=== PATIENT | female | born 1985 ===

== ENCOUNTER 2017-01-07 12:58 | Emergency (ER) | payer OTHER ==
[2017-01-07 13:04] VITALS: RESP 20; TEMP 98.8; O2SAT 100
[2017-01-07 13:06] VITALS: BMI 20.5
--- NOTE | 2017-01-07 13:50 | ED PDOC ---
HPI: Hypertension/Hypotension History Per: Patient History/Exam Limitations: no limitations Additional Complaint(s): 31 y/o F complaining of headache, SOB, sore throat and body aches that began 3 days ago and has progressively aggravated. Pt visited today urgent care clinic where BP was 185/100, pt was sent to ER. Pt reports taking Sudafed and Nyquil yesterday and not eating today. Pt came back from a [place] trip 5 days ago. No previous similar episodes. Pt denies fever, sore throat, CP, palpitations, abdominal pain, urinary complaints. Medications: none PMHx: denied PSHx: apendectomy during shildhood. FHx: Strong HTN history in everybody in her family. SHx: No tobacco or alcohol. Reports smoking marihuana intermittently. Sexually active. 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 <Vladimir Cruz - Last Filed: 01/07/17 14:19> <Aishwarya Valenzuela - Last Filed: 01/07/17 14:57> Time Seen by Provider: 01/07/17 13:15 Chief Complaint (Nursing): High Blood Pressure Supervising Attending Note - Supervising Attending Note The Documented history was done by the: Physician Management Accounts Manager The documented physical exam was done by the: Physician Management Accounts Manager - Attestation: I have personally seen and examined this patient.: Yes I have fully participated in the care of the patient.: Yes I have reviewed all pertinent clinical information, including history, physical exam and plan: Yes <Aishwarya aVlenzuela - Last Filed: 01/07/17 14:57> Past Medical History Vital Signs: Last Vital Signs Temp 98.8 F 01/07/17 13:01 Pulse 125 H 01/07/17 13:01 Resp 20 01/07/17 13:01 BP 205/155 H 01/07/17 13:01 Pulse Ox 100 01/07/17 13:01 - Medical History PMH: No Chronic Diseases <Vladimir Cruz - Last Filed: 01/07/17 14:19> Vital Signs: Last Vital Signs Temp 98.8 F 01/07/17 13:01 Pulse 125 H 01/07/17 13:01 Resp 20 01/07/17 13:01 BP 175/102 H 01/07/17 14:14 Pulse Ox 100 01/07/17 14:21 - Family History Family History: States: Hypertension <Aishwarya Valenzuela - Last Filed: 01/07/17 14:57> - Home Medications Home Medications: Ambulatory Orders Medication Instructions Recorded Ciprofloxacin HCl [Cipro] 500 mg PO BID #14 tab 10/04/14 Oxycodone HCl/Acetaminophen 1 tab PO Q6 #15 tab 10/04/14 [Percocet 325 mg-5 mg] Tamsulosin [Flomax] 0.4 mg PO DAILY #14 cap 10/04/14 - Allergies Allergies/Adverse Reactions: Allergies Allergy/AdvReac Type Severity Reaction Status Date / Time No Known Allergies Allergy Verified 10/04/14 18:07 Physical Exam - Reviewed Vital Signs Reviewed: Yes - Physical Exam Appears: Positive for: Well, Uncomfortable Head Exam: Positive for: ATRAUMATIC, NORMAL INSPECTION Skin: Positive for: Normal Color Eye Exam: Positive for: Normal appearance ENT: Positive for: Pharynx Is (erythematous, tonsils are enlarge. ) Neck: Positive for: Normal, Supple Cardiovascular/Chest: Positive for: Regular Rate, Rhythm Respiratory: Positive for: Normal Breath Sounds Gastrointestinal/Abdominal: Positive for: Normal Exam, Bowel Sounds, Soft. Negative for: Tenderness <Vladimir Cruz - Last Filed: 01/07/17 14:19> - ECG O2 Sat by Pulse Oximetry: 100 <Vladimir Cruz - Last Filed: 01/07/17 14:19> - Laboratory Results Result Diagrams: 01/07/17 14:00 <Aishwarya Valenzuela - Last Filed: 01/07/17 14:57> Medical Decision Making Medical Decision Makin31 y/o F presenting with elevated BP. Plan: --CBC --CMP --EKG --Chest X ray --Acetaminophen PO 975mg. <Vladimir Cruz - Last Filed: 01/07/17 14:19> Medical Decision Makin.30 p - patient is feeling much better after Tylenol 975mg. Her blood pressure has come down significantly. After in depth discussion on the pros and cons of treated her blood pressure with a blood pressure lowering agent, patient opted to hold off. She agrees to either see Dr. Cruz in the [facility] within 1-2 weeks or finding a PCP on her own. Cautioned her on the need of followup closely given her family history of hypertension in both parents. <Aishwarya Valenzuela - Last Filed: 01/07/17 14:57> Disposition <Vladimir Cruz - Last Filed: 01/07/17 14:19> - Patient ED Disposition Is Patient to be Admitted: No Doctor Will See Patient In The: Office Counseled Patient/Family Regarding: Diagnosis, Need For Followup - Disposition Disposition: Routine/Home Disposition Time: 14:56 - POA Present On Arrival: None <Aishwarya Valenzuela - Last Filed: 01/07/17 14:57> - Clinical Impression Clinical Impression: Hypertension - Disposition Condition: IMPROVED Instructions: Hypertension (ED), Acute Headache (ED) Forms: [facility] ([place])
[2017-01-07 14:38] LABS: HEMOGLOBIN 12.4 g/dL (12.0-16.0); MEAN CORPUSCULAR HEMOGLOBIN 29.9 pg (27.0-31.0); RBC 4.15 Mil/uL (3.80-5.20); RED CELL DISTRIBUTION WIDTH 15.3 % (11.5-14.5)
[2017-01-07 14:40] LABS: MEAN CELL VOLUME 90.5 fl (81.0-99.0)
[2017-01-07 14:49] LABS: ALB/GLOB RATIO 1.2 (1.0-2.1); ALBUMIN 4.2 g/dL (3.5-5.0); ALT/SGPT 26 U/L (9-52); AST/SGOT 17 U/L (14-36); BLOOD UREA NITROGEN 7 mg/dl (7-17); CALCIUM 9.2 mg/dL (8.4-10.2); GFR AFRICAN-AMERICAN > 60; GFR NON-AFRICAN AMERICAN > 60
--- NOTE | 2017-01-07 15:09 | RAD ---
HISTORY: shortness of breath COMPARISON: 06/05/2010 TECHNIQUE: Chest PA and lateral FINDINGS: LUNGS: No active pulmonary disease. PLEURA: No significant pleural effusion identified. No pneumothorax apparent. CARDIOVASCULAR: Normal. OSSEOUS STRUCTURES: No significant abnormalities. VISUALIZED UPPER ABDOMEN: Normal. OTHER FINDINGS: None. IMPRESSION: No active disease. No significant interval change compared to the prior examination(s).
[2017-01-07 15:12] VITALS: BP 160/95; PULSE 90
--- NOTE | 2017-01-08 11:55 | CARD ---
APPROVED REPORT EKG Measurement Heart [id number] <Conclusion> Normal sinus rhythm Normal ECG
== END 2017-01-07 15:11 | disposition home or self-care (01) ==
LOC: H.ER 12:58
DX: I10 Essential (primary) hypertension (principal)

== ENCOUNTER 2017-03-22 09:50 | Emergency (ER) | payer MEDICAID, OTHER ==
[2017-03-22 09:50] VITALS: BMI 20.5
[2017-03-22] MEDS ORDERED: Sodium Chloride 0.9% 1,000 ML IV STA (10:06)
--- NOTE | 2017-03-22 10:09 | ED PDOC ---
HPI: General Adult Time Seen by Provider: 03/22/17 09:52 Chief Complaint (Nursing): Upper Extremity Problem/Injury History Per: Patient Onset/Duration Of Symptoms: Days (1) Current Symptoms Are (Timing): Still Present Severity: Moderate Additional Complaint(s): Cramping upper ext x 1 day. Has been vomiting, pt thinks secondary to "hangover ". Denies focal weakness or chest pain. Past Medical History Vital Signs: Last Vital Signs Temp 98 F 03/22/17 15:05 Pulse 74 03/22/17 13:23 Resp 22 03/22/17 15:05 BP 146/70 03/22/17 15:40 Pulse Ox 98 03/22/17 12:14 - Medical History PMH: No Chronic Diseases - Family History Family History: States: Hypertension - Home Medications Home Medications: Ambulatory Orders Medication Instructions Recorded Ciprofloxacin HCl [Cipro] 500 mg PO BID #14 tab 10/04/14 Oxycodone HCl/Acetaminophen 1 tab PO Q6 #15 tab 10/04/14 [Percocet 325 mg-5 mg] Tamsulosin [Flomax] 0.4 mg PO DAILY #14 cap 10/04/14 amLODIPine [Norvasc] 5 mg PO DAILY #30 tab 03/22/17 - Allergies Allergies/Adverse Reactions: Allergies Allergy/AdvReac Type Severity Reaction Status Date / Time No Known Allergies Allergy Verified 10/04/14 18:07 Review of Systems Gastrointestinal: Positive for: Vomiting Musculoskeletal: Positive for: Other (Cramping/spasm upper ext) Neurological: Negative for: Weakness, Numbness Physical Exam - Physical Exam Appears: Positive for: Non-toxic, No Acute Distress Skin: Positive for: Normal Color, Warm, DRY Cardiovascular/Chest: Positive for: Regular Rate, Rhythm Respiratory: Positive for: CNT, Normal Breath Sounds Gastrointestinal/Abdominal: Positive for: Bowel Sounds, Soft. Negative for: Tenderness Extremity: Positive for: Other (Spasm upper ext/hands bilat) Neurologic/Psych: Positive for: Alert, Oriented. Negative for: Motor/Sensory Deficits - Laboratory Results Result Diagrams: 03/22/17 10:22 03/22/17 10:22 - ECG O2 Sat by Pulse Oximetry: 100 Medical Decision Making Medical Decision Making: Advised 24 hr obs for symptomatic HTN possibly related to Cocaine use. BP improved and pt asymptomatic. Wishes to go home and f/u outpt. Advised to refrain from Cocaine use. Risks include Arrhthmia, heart attack, stroke and Disposition - Clinical Impression Clinical Impression: Hypertension - Patient ED Disposition Is Patient to be Admitted: No Counseled Patient/Family Regarding: Studies Performed, Diagnosis, Need For Followup, Rx Given - Disposition Referrals: [facility] [Outside] Disposition: Routine/Home Disposition Time: 15:48 Condition: FAIR Prescriptions: amLODIPine [Norvasc] 5 mg PO DAILY #30 tab Instructions: Hypertension (ED) Forms: [facility] ([place])
[2017-03-22 10:28] LABS: BASO % 0.4 % (0.0-2.0); EOS % 0.4 % (0.0-4.0); HEMOGLOBIN 13.2 g/dL (12.0-16.0); LYMPH # 1.3 K/uL (1.0-4.3); LYMPH % 14.2 % (20.0-40.0); MEAN CELL VOLUME 89.4 fl (81.0-99.0); MEAN CORPUSCULAR HGB CONC 33.6 g/dL (33.0-37.0); MEAN PLATELET VOLUME 8.1 fl (7.2-11.7); MONO # 0.4 K/uL (0.0-0.8); MONO % 4.4 % (0.0-10.0); NEUT # 7.2 K/uL (1.8-7.0); NEUT % 80.6 % (50.0-75.0); RBC 4.38 Mil/uL (3.80-5.20); RED CELL DISTRIBUTION WIDTH 14.5 % (11.5-14.5)
[2017-03-22 10:39] LABS: ALB/GLOB RATIO 1.3 (1.0-2.1); ALBUMIN 4.8 g/dL (3.5-5.0); ALT/SGPT 25 U/L (9-52); AST/SGOT 31 U/L (14-36); BLOOD UREA NITROGEN 16 mg/dl (7-17); CALCIUM 8.9 mg/dL (8.4-10.2); GFR AFRICAN-AMERICAN > 60; GFR NON-AFRICAN AMERICAN > 60
[2017-03-22 12:59] LABS: BARBITURATES, UR NEGATIVE (NEGATIVE); BENZODIAZEPINES, UR NEGATIVE (NEGATIVE); OPIATES, UR NEGATIVE (NEGATIVE); PHENCYCLIDINE, UR NEGATIVE (NEGATIVE)
[2017-03-22] MEDS ORDERED: Enalaprilat 2.5 MG/2 ML IVP STA (13:09)
[2017-03-22] MEDS ORDERED: EnalaprilAT 1.25 mg/ml Inj ONE (13:21)
--- NOTE | 2017-03-22 15:31 | CT ---
PROCEDURE: CT HEAD WITHOUT CONTRAST. HISTORY: HTN COMPARISON: None available. TECHNIQUE: Axial computed tomography images were obtained through the head/brain without intravenous contrast. Radiation dose: Total exam DLP = 745.97 mGy-cm. This CT exam was performed using one or more of the following dose reduction techniques: Automated exposure control, adjustment of the mA and/or kV according to patient size, and/or use of iterative reconstruction technique. FINDINGS: HEMORRHAGE: No intracranial hemorrhage. BRAIN: No mass effect or edema. No atrophy or chronic microvascular ischemic changes. VENTRICLES: Unremarkable. No hydrocephalus. CALVARIUM: Unremarkable. PARANASAL SINUSES: Unremarkable as visualized. No significant inflammatory changes. MASTOID AIR CELLS: Unremarkable as visualized. No inflammatory changes. OTHER FINDINGS: None. IMPRESSION: Normal CT of the Head. No intracranial mass, hemorrhage or evidence of acute infarct.
[2017-03-22 17:12] VITALS: BP 147/60; PULSE 80; RESP 20; TEMP 98.5; O2SAT 98
--- NOTE | 2017-03-23 10:56 | CARD ---
APPROVED REPORT EKG Measurement Heart [id number] <Conclusion> Sinus rhythm with premature supraventricular complexes Possible Left atrial enlargement Prolonged QT Abnormal ECG
== END 2017-03-22 16:00 | disposition home or self-care (01) ==
LOC: H.ER 09:50
DX: I10 Essential (primary) hypertension (principal)
CPT/HCPCS: 70450; 80053; 80324; 80345; 80346; 80349; 80353; 80358; 80361; 81025; 83992; 85025; 93005; 96374; 96375; 99283; J2405; J7040